=== PATIENT | male | born 1970 | race African-American/Black ===

== ENCOUNTER 2024-02-24 04:15 | Emergency (ER) | payer MEDICAID ==
[~2024-02-24] VITALS: Ht 172.7 cm; Wt 100.0 kg
[2024-02-24 04:17] VITALS: RESP 16; TEMP 97.8; O2SAT 100
[2024-02-24] MEDS ORDERED: AMLO10TA15 PO (04:28)
[2024-02-24 04:53] VITALS: PULSE 92
[2024-02-24] MEDS: amLODIPine 5mg tablet PO ONE (04:53)
[2024-02-24 04:54] VITALS: BP 182/104
== END 2024-02-24 04:56 | disposition home or self-care (01) ==
LOC: ER 04:16
DX: I10 Essential (primary) hypertension (principal); Z02.89 Encounter for other administrative examinations
CPT/HCPCS: 99283